=== PATIENT | male | born 1975 | race Caucasian/White ===

== ENCOUNTER 2016-11-09 00:12 | Emergency (ER) | payer SELFPAY ==
[2016-11-09 01:52] LABS: BASO # 0.1 K/uL (0.0-0.2); BASO % 1.5 % (0.0-2.0); EOS # 0.2 K/uL (0.0-0.7); EOS % 2.4 % (0.0-4.0); HEMATOCRIT 33.1 % (35.0-51.0); LYMPH # 2.2 K/uL (1.0-4.3); LYMPH % 25.9 % (20.0-40.0); MEAN CELL VOLUME 72.9 fL (80.0-94.0); MEAN CORPUSCULAR HEMOGLOBIN 23.5 pg (27.0-31.0); MEAN CORPUSCULAR HGB CONC 32.2 g/dL (33.0-37.0); MEAN PLATELET VOLUME 7.2 fL (7.2-11.7); MONO % 11.4 % (0.0-10.0); RED CELL DISTRIBUTION WIDTH 13.8 % (11.5-14.5); WHITE BLOOD COUNT 8.7 K/uL (4.8-10.8)
[2016-11-09 02:04] LABS: CHLORIDE 103 mmol/L (98-107); SODIUM 138 mmol/L (132-148)
[2016-11-09 02:07] LABS: ALKALINE PHOSPHATASE 57 U/L (38-126); ALT/SGPT 11 U/L (21-72); AST/SGOT 11 U/L (17-59); BILIRUBIN,TOTAL 0.9 mg/dL (0.2-1.3); BLOOD UREA NITROGEN 11 mg/dL (9-20); CARBON DIOXIDE 24 mmol/L (22-30); GFR AFRICAN-AMERICAN > 60; GLUCOSE,RANDOM 109 mg/dL (75-110); TOTAL PROTEIN 6.8 g/dL (6.3-8.3)
[2016-11-09 02:08] LABS: CALCIUM 7.9 mg/dl (8.6-10.4)
--- NOTE | 2016-11-09 02:23 | C.PDOC ---
History Of Present Illness A 41 y/o male c/o pain and swelling to the right testicle for 2 days. Pt denies injury, dysuria, discharge, hematuria, fever, chills, incontinence, or any other complaints. Time Seen by Provider: 11/09/16 00:18 Chief Complaint (Nursing): Male Genitourinary History Per: Patient History/Exam Limitations: no limitations Onset/Duration Of Symptoms: Days Current Symptoms Are (Timing): Still Present Severity: Mild Recent travel outside of the [place]: No Additional History Per: Patient Past Medical History Reviewed: Historical Data, Nursing Documentation, Vital Signs Vital Signs: Last Vital Signs Temp 98.4 F 11/09/16 00:18 Pulse 76 11/09/16 00:18 Resp 18 11/09/16 00:18 BP 122/78 11/09/16 00:18 Pulse Ox 99 11/09/16 02:47 Family History: States: Unknown Family Hx - Social History Hx Alcohol Use: No Hx Substance Use: No - Immunization History Hx Tetanus Toxoid Vaccination: No Review Of Systems Except As Marked, All Systems Reviewed And Found Negative. Constitutional: Negative for: Fever, Chills, Other (Injury) Genitourinary: Positive for: Scrotal Pain (Right testicle pain and swelling). Negative for: Dysuria, Incontinence, Hematuria, Penile Discharge Physical Exam - Physical Exam Appears: Non-toxic, In Acute Distress (Mild distress due to pain) Skin: Warm, Dry Head: Atraumatic, Normacephalic Eye(s): bilateral: Normal Inspection Chest: Symmetrical Cardiovascular: Rhythm Regular, No Murmur Respiratory: Normal Breath Sounds, No Accessory Muscle Use, No Wheezing Gastrointestinal/Abdominal: Soft, No Tenderness Male Genital: Testicular Tenderness (Right. Tender to touch), Testicular Swelling (Right) Neurological/Psych: Oriented x3, Normal Speech, Normal Cognition, Other (No focal deficit) ED Course And Treatment - Laboratory Results Result Diagrams: 11/09/16 01:49 11/09/16 01:49 O2 Sat by Pulse Oximetry: 99 (RA) Pulse Ox Interpretation: Normal - CT Scan/US US Scrotum Other Rad Studies (CT/US): Interpreted By Me, Read By Radiologist CT/US Interpretation: EXAM: US Scrotum. CLINICAL HISTORY: 41 years old, male ; Pain; Scrotum pain; Additional info: Right testicular swqelling and tenderness. TECHNIQUE: Real-time ultrasound of the scrotum with color Doppler and image documentation. EXAM DATE/TIME: Exam ordered 11/09/2016 1:19 AM. COMPARISON: No relevant prior studies available. FINDINGS: Right testicle: Unremarkable. No mass. No torsion. Left testicle: Unremarkable. No mass. No torsion. Epididymides: The right epididymis is enlarged echogenic and hyperemic. There is a complex rightsided. hydrocele which is moderate with skin thickening. Findings are consistent with acute. epididymitis. Presumably there is no history of trauma to support posttraumatic changes and. hematoma. Epididymal cyst on the right measures 1.3 x 1.6 x 1.2 cm. Scrotum: See above. IMPRESSION: The right epididymis is enlarged echogenic and hyperemic. There is a complex right-sided. hydrocele which is moderate with skin thickening. Findings are consistent with acute epididymitis. Presumably there is no history of trauma to support posttraumatic changes and hematoma. Medical Decision Making Medical Decision Making: Impression: A 41 y/o male c/o pain and swelling to the right testicle for 2 days. Plans: Toradol IV fluids US Testicular Reassess Disposition Counseled Patient/Family Regarding: Diagnosis - Disposition Referrals: [facility] [Outside] Kip Echavarria MD [Staff Provider] - (refer to Keerthi Chandler- urology security solutions architect.) Non [facility] Provider, [Primary Care Provider] - Disposition: HOME/ ROUTINE Disposition Time: 02:45 Condition: STABLE Prescriptions: Doxycycline Hyclate 100 mg PO BID #20 capsule Indomethacin [Indocin] 25 mg PO TIDPC #20 cap Instructions: Epididymitis (ED), Testicle Pain (ED), Hydrocele (ED) - POA Present On Arrival: None - Clinical Impression Clinical Impression: Epididymitis, Hydrocele in adult - Scribe Statement The provider has reviewed the documentation as recorded by the Scribe Stefania cesar All medical record entries made by the Scribe were at my direction and personally dictated by me. I have reviewed the chart and agree that the record accurately reflects my personal performance of the history, physical exam, medical decision making, and the department course for this patient. I have also personally directed, reviewed, and agree with the discharge instructions and disposition.
[2016-11-09] MEDS ORDERED: Potassium Chloride 20 mEq/15 ml LIQ UD PO STA (02:26)
[2016-11-09] MEDS ORDERED: cefTRIAXone IV 1 gm in Dextros 50 ML IVPB ONE ×2 (02:43→02:50)
[2016-11-09] MEDS ORDERED: Potassium Chloride 20 mEq/15 ml LIQ UD ONE (02:46)
[2016-11-09 03:14] VITALS: BP 135/79; PULSE 71; RESP 20; TEMP 97.9; O2SAT 100
--- NOTE | 2016-11-09 10:29 | US ---
HISTORY: Right testicular swelling and tenderness TECHNIQUE: Realtime sonography through the scrotum with color and doppler flow. COMPARISON: None Available. FINDINGS: RIGHT TESTICLE: Measures 4.5 x 2.8 x 2.9 cm. Homogeneous echotexture. Blood flow is demonstrated. RIGHT EPIDIDYMIS: Enlarged hyperemic heterogeneous appearance of the visualized epididymis. 1.3 x 1.6 x 1.2 cm anechoic avascular rounded structure consistent with cyst. LEFT TESTICLE: Measures 4.9 x 2.2 x 2.5 cm. Homogeneous echotexture. Blood flow is demonstrated. LEFT EPIDIDYMIS: Unremarkable. HYDROCELE: Complex right-sided hydrocele. VARICOCELE: None. OTHER FINDINGS: Moderate right-sided scrotal thickening. IMPRESSION: Enlarged hyperemic heterogeneous appearance of the visualized right epididymis. Complex right-sided hydrocele. Moderate right-sided scrotal thickening. Constellation of findings consistent with acute epididymitis. Correlate clinically to exclude history of trauma in order to exclude posttraumatic change and hematoma. 1.3 x 1.6 x 1.2 cm probable right epididymal cyst. Preliminary impression was provided by virtual radiologic.
== END 2016-11-09 03:25 | disposition home or self-care (01) ==
LOC: SUPCPDRO 00:12 → C.ER 00:12
DX: N45.1 Epididymitis (principal); N43.3 Hydrocele, unspecified; E87.6 Hypokalemia
CPT/HCPCS: 76870; 80053; 85025; 96365; 96375; 99284; J0696; J1885